=== PATIENT | male | born 1995 | race Caucasian/White ===

== ENCOUNTER 2021-02-21 14:38 | Emergency (ER) | payer OTHER ==
[~2021-02-21] VITALS: Ht 182.9 cm; Wt 100.0 kg
[2021-02-21 15:29] VITALS: BP 138/92; PULSE 115; TEMP 100.2
[2021-02-21 16:29] LABS: STREP SCREEN NEGATIVE
== END 2021-02-21 17:25 | disposition home or self-care (01) ==
LOC: COL.ER 14:38
PROVIDERS: Emergency Medicine
DX: U07.1 COVID-19 (principal); J45.909 Unspecified asthma, uncomplicated; F84.0 Autistic disorder; Z88.1 Allergy status to other antibiotic agents